=== PATIENT | female | born 1980 | race Asian ===

== ENCOUNTER 2017-11-27 10:48 | Outpatient (CLI) | payer BC ==
--- NOTE | 2017-11-27 13:16 | ULT ---
ABDOMEN ULTRASOUND: HISTORY: Epigastric pain. Reflux. COMPARISON: None. TECHNIQUE: Utilizing a Multi-Hertz transducer, sonographic imaging of the abdomen was performed in the longitudi nal and transverse planes. FINDINGS: The hepatic parenchyma has a normal echotexture. No hepatic masses or intrahepatic dilatation. The contour of the hepatic margin is maintained. The visualized aorta and inferior vena cava are unremarkable. The head and body of the pancreas have a normal echotexture. The pancreatic tail is obscured. The main portal vein is patent. Appropriate directional flow. No sonographic evidence of cholelithiasis, gallbladder wall thickening, or pericholecystic fluid. Ne gative Lewis sign. Common bile duct diameter is 0.3 cm. The right and left kidneys have normal cortical echotexture. Bilaterally, no hydronephrosis. The ri ght kidney measures 10 x 4.3 x 3.6 cm. The left kidney measures 9.8 x 5.7 x 4.9 cm. The spleen has a normal echotexture, measuring 8.1 cm in maximum dimension. IMPRESSION: Unremarkable abdomen ultrasound. POS: [facility]
== END 2017-11-27 10:49 | disposition home or self-care (01) ==
LOC: ULT 10:48
PROVIDERS: ATTEND Internal Medicine Gastroenterology
DX: K21.9 Gastro-esophageal reflux disease without esophagitis (principal); R10.13 Epigastric pain
CPT/HCPCS: 76700